=== PATIENT | male | born 1985 | race Hispanic/Latino ===

== ENCOUNTER 2023-01-19 21:50 | Emergency (ER) | payer OTHER ==
[~2023-01-19] VITALS: Ht 185.4 cm; Wt 83.0 kg
[2023-01-20] MEDS ORDERED: FLUORESCEIN SODIUM 1 STRIP STRIP ONE (00:08)
[2023-01-20] MEDS ORDERED: TETRACAINE HCL 0.5% 4 ML OPHTH SOLN ONE (00:08)
[2023-01-20 03:27] VITALS: BP 125/80; PULSE 78; RESP 14; O2SAT 98
[2023-01-20] MEDS ORDERED: FLUORESCEIN SODIUM 1 STRIP STRIP OP SCH (03:30)
[2023-01-20] MEDS ORDERED: HYDROCODONE/ACETAMINOPHEN 5/325 MG TAB PO ONE (03:30)
[2023-01-20] MEDS ORDERED: TETRACAINE HCL 0.5% 4 ML OPHTH SOLN OP SCH (03:30)
== END 2023-01-20 04:11 | disposition home or self-care (01) ==
LOC: EDH 21:50
DX: H57.12 Ocular pain, left eye (principal); R09.89 Other specified symptoms and signs involving the circulatory and respiratory systems